=== PATIENT | female | born 1970 | race Caucasian/White ===

== ENCOUNTER 2022-07-10 19:15 | Emergency (ER) | payer BC ==
[2022-07-10] MEDS ORDERED: Ondansetron 4 MG Tab.DIS PO ONE ×2 (19:16→19:55)
[2022-07-10] MEDS ORDERED: Acetaminophen 500 MG Tab PO ONE (20:35)
[2022-07-10] MEDS ORDERED: Ketorolac 30 MG/ML SDV IVPUSH ONE (20:35)
[2022-07-10] MEDS ORDERED: Sodium Chloride 0.9% 10 ML Syringe FLUSH PRN (20:35)
[2022-07-10] MEDS ORDERED: Sodium Chloride 0.9% 1,000 ML IV ONE (20:35)
[2022-07-10 20:48] LABS: CORONAVIRUS COVID-19 NAA NEGATIVE (NEGATIVE); RESPIRATORY SYNCYTIAL VIR NAA NEGATIVE (NEGATIVE)
[2022-07-10] MEDS ORDERED: Ondansetron 4 MG Tab.DIS ONE (22:16)
== END 2022-07-10 22:19 | disposition home or self-care (01) ==
LOC: DL.ED 19:15
DX: B34.9 Viral infection, unspecified (principal); Z88.2 Allergy status to sulfonamides; Z88.8 Allergy status to other drugs, medicaments and biological substances; Z20.822 Contact with and (suspected) exposure to COVID-19
CPT/HCPCS: 0241U; 96361; 96374; 99283; 99284-25; A9270-GY; J1885; J7030

== ENCOUNTER 2024-07-30 18:39 | Emergency (ER) | payer BC ==
[2024-07-30] MEDS: Ibuprofen 800 MG Tab PO ONE (20:38)
[2024-07-30] MEDS: Ondansetron 4 MG Tab.DIS PO ONE (20:39)
[2024-07-30] MEDS: Acetaminophen 500 MG Tab PO ONE (20:39)
[2024-07-30] MEDS: Take Home: Ondansetron 4 MG Tab.DIS, 5 Tab Pack PO ONE (20:47)
== END 2024-07-30 20:56 | disposition home or self-care (01) ==
LOC: DL.ED 18:39
DX: K52.9 Noninfective gastroenteritis and colitis, unspecified (principal); Z88.8 Allergy status to other drugs, medicaments and biological substances; Z88.2 Allergy status to sulfonamides
CPT/HCPCS: 87428; 99284; A9270; Q0162